=== PATIENT | female | born 1985 | race Caucasian/White ===

== ENCOUNTER 2017-11-18 05:31 | Emergency (ER) | payer MEDICAID ==
[2017-11-18 05:37] VITALS: BP 136/86
[2017-11-18] MEDS ORDERED: IBUPROFEN 600 MG TABLET PO ONE (05:37)
[2017-11-18] MEDS ORDERED: LIDOCAINE 2% VISCOUS SOLN 20 ML UDCUP PO ONE (05:37)
[2017-11-18] MEDS ORDERED: BENZONATATE 100 MG CAPSULE PO ONE (05:38)
--- NOTE | 2017-11-18 05:38 | ER Document Report ---
ED Oral Problem - General Chief Complaint: Toothache Stated Complaint: TOOTH PAIN Notes: The patient is a 32-year-old female who presents with right upper molar dental pain after she felt a crack yesterday. She does not have a dentist in town. Denies fevers, difficulty swallowing or facial swelling. TRAVEL OUTSIDE OF THE [place] IN LAST 30 DAYS: No - Related Data Allergies/Adverse Reactions: No Known Allergies Allergy (Unverified 11/18/17 05:37) Past Medical History - General Information source: Patient - Social History Smoking Status: Unknown if Ever Smoked Family History: Reviewed & Not Pertinent Patient has suicidal ideation: No Patient has homicidal ideation: No Renal/ Medical History: Denies: Hx Peritoneal Dialysis Review of Systems - Review of Systems Constitutional: denies: Chills, Fever EENT: Dental problem. denies: Mouth swelling Respiratory: denies: Cough, Short of breath Physical Exam - Vital signs Vitals: Temp Pulse Resp BP Pulse Ox 98.1 F 99 20 136/86 H 100 11/18/17 05:35 11/18/17 05:35 11/18/17 05:35 11/18/17 05:35 11/18/17 05:35 - General General appearance: Appears well In distress: None - HEENT Sinus: Normal Mouth/Lips: Normal Mucous membranes: Moist Teeth diagram: 1 - tenderness, no fracture seen Pharynx: Normal Neck: Normal - Respiratory Respiratory status: No respiratory distress Course - Vital Signs Vital signs: Temp Pulse Resp BP Pulse Ox 98.1 F 99 20 136/86 H 100 11/18/17 05:35 11/18/17 05:35 11/18/17 05:35 11/18/17 05:35 11/18/17 05:35 Discharge - Discharge Clinical Impression: Pain, dental Condition: Stable Disposition: HOME, SELF-CARE Additional Instructions: TOOTHACHE: Your pain is due to dental decay. The tooth must be repaired in order for you to feel better. You will, therefore, be referred to a dentist. We do not have dentists on the staff at [facility]. Severe swelling or drainage around a tooth usually means a dental abscess. This also requires evaluation and treatment by the dentist, but antibiotics may be prescribed while awaiting dental treatment. You should be rechecked immediately if you develop major swelling of the face, increasing pain, a lump in the jaw or gums, headache, difficulty swallowing, or fever. FOLLOW-UP CARE: You have been referred for follow-up care to the dentists listed below. Call the dentists office for an appointment as you were instructed or within the next two days. If you experience worsening or a significant change in your symptoms, notify the physician immediately or return to the Emergency Department at any time for re-evaluation. [facility] [address] [place], [place] Saturday mornings, by appointment [facility] [address] [place] [address] [facility] [place] [address] [facility] [address] [facility] ([facility] [address] [email or web address] [address] [place] [address] Saturday- 8:00am to 5:00 pm Will see patients from other doctors hospital. Charges based on income and family size and accepts Medicare, Medicaid, and Insurances Will pull molars [facility] [address] Hours of Operation 8:00 am - 4:30 pm weekdays The following dental offices accept Medicaid: [facility] Dr. Patel Dr. Dempsey Dr. Jaramillo Dr. Toth Shawn Diaz L[place], and Beth oral surgery Dr. Barrientos ([place]) Dr. Gerardo ([place]) [facility] Drs. Smith and Alistair ([place]) Dr. Mnedoza ([place]) [facility] Dr. Marie ([place]) Drs. Kern and ([place]) Medicaid Care Line Forms: Elevated Blood Pressure Referrals: [facility] [Provider Group] - Follow up as needed
== END 2017-11-18 05:50 | disposition home or self-care (01) ==
LOC: ER 05:31
DX: K08.89 Other specified disorders of teeth and supporting structures (principal)
CPT/HCPCS: 99282; J3490 ×3